=== PATIENT | male | born 1960 | race Caucasian/White ===

== ENCOUNTER 2016-05-29 07:31 | Inpatient (IN) | payer BC ==
[~2016-05-29] VITALS: Ht 193 cm; Wt 86.0 kg
[~2016-05-29 07:31] MED LIST: NEURONTIN300 MG PO; TEGRETOL200 MG PO
[2016-05-29 09:22] VITALS: BP 135/82
[2016-05-29 18:24] VITALS: BP 125/81
[2016-05-29 20:56] VITALS: BP 138/94
[2016-05-30 00:09] VITALS: BP 112/60
[2016-05-30 04:53] VITALS: BP 118/65
[2016-05-30 07:37] VITALS: BP 114/70
== END 2016-05-30 11:48 | disposition home or self-care (01) | DRG 460 ==
LOC: 2SOUTH 07:31 → SDC 12:27 → EDSTATUS 12:28 → 2SOUTH 12:29 → 3EAST 18:08
DX: M48.06 Spinal stenosis, lumbar region (principal); M51.16 Intervertebral disc disorders with radiculopathy, lumbar region; M47.26 Other spondylosis with radiculopathy, lumbar region; F17.210 Nicotine dependence, cigarettes, uncomplicated
CPT/HCPCS: 36415; 72100; 76000; 80048; 85025; 86850; 86900; 86901; 95886; 95938; C1713; J0330; J0690; J1170; J2250; J2405; J3010; J3480; J7120; S0020